=== PATIENT | female | born 1945 | race American Indian/Alaskan Native ===

== ENCOUNTER 2017-12-09 16:33 | Emergency (ER) | payer MEDICARE ==
--- NOTE | 2017-12-09 17:27 | Emergency Department Report ---
ED General Adult HPI - General Chief complaint: Weakness Stated complaint: FALL Time Seen by Provider: 12/09/17 17:11 Source: patient, EMS (verbal report received from EMS.ems notes not available at time of chart dictation), RN notes reviewed, old records reviewed Mode of arrival: Stretcher Limitations: Physical Limitation - History of Present Illness Initial comments: This is a 72-year-old female who is previously unknown to this provider. Past medical history includes hypertension, pacemaker, diabetes, congestive heart failure, chronic kidney disease, failure to thrive, functional quadriplegia. Patient was admitted to this hospital in September and had a prolonged course. Patient is brought to the hospital by EMS for generalized weakness. Apparently , the patient had been recently admitted to [facility] from November 18 to December 08. Her discharge diagnoses included urinary retention, altered mental status, anemia of chronic disease, chronic kidney disease, stage IV, morbid obesity and osteoarthritis. EMS verbally reported to this provider that the patient was at home with her family, and the patient was being transferred to a wheelchair, and fell onto her butt. She did not fall and hit her head or her neck. Family was unable to lift up the patient, and therefore called 911. EMS further reports that it took 3 people to get the patient lifted up. The patient denies headache, neck pain, chest pain, abdominal pain, shortness of breath. Her only complaint is bilateral plantar foot "burning" which has been present for months. He does not have exacerbating or relieving factors. -: Sudden Consistency: constant Improves with: none Worsens with: none Associated Symptoms: malaise, weakness, other (as per history of present illness ). denies: confusion, chest pain, cough, diaphoresis, fever/chills, headaches, nausea/vomiting, rash, seizure, shortness of breath, syncope - Related Data Previous Rx's Medication Instructions Recorded Last Taken Type Levofloxacin [Levaquin TAB] 250 mg PO Q48HR #4 dose 10/18/17 Unknown Rx predniSONE [Deltasone] 60 mg PO QDAY #30 day 10/18/17 Unknown Rx Acetaminophen [Acetaminophen TAB] 650 mg PO Q4H PRN #30 tablet 12/09/17 Unknown Rx Amlodipine Besylate [Norvasc] 10 mg PO QDAY #30 tablet 12/09/17 Unknown Rx AtorvaSTATin [Lipitor] 40 mg PO QHS #30 tablet 12/09/17 Unknown Rx Carvedilol 25 mg PO BID #60 tablet 12/09/17 Unknown Rx Furosemide [Lasix TAB] 40 mg PO BID #60 tablet 12/09/17 Unknown Rx Gabapentin [Neurontin] 100 mg PO TID #90 capsule 12/09/17 Unknown Rx Insulin Glargine,Hum.rec.anlog 20 units SQ QHS #30 vial 12/09/17 Unknown Rx [Lantus] Lispro Insulin [Humalog] 1 dose SUB-Q ACHS #100 units 12/09/17 Unknown Rx Loratadine [Claritin] 10 mg PO QDAY #30 tablet 12/09/17 Unknown Rx Omeprazole 40 mg PO QDAY #30 capsule. 12/09/17 Unknown Rx Sodium Bicarbonate 1,300 mg PO BID #30 day 12/09/17 Unknown Rx Zolpidem [Ambien] 5 mg PO QHS PRN #30 tablet 12/09/17 Unknown Rx Allergies Allergy/AdvReac Type Severity Reaction Status Date / Time codeine Allergy Itching Verified 10/10/17 17:56 Penicillins Allergy Itching Verified 10/10/17 17:56 ED Review of Systems ROS: Stated complaint: FALL Other details as noted in HPI Comment: All other systems reviewed and negative ED Past Medical Hx - Past Medical History Hx Hypertension: Yes Hx Congestive Heart Failure: Yes Hx Diabetes: Yes Hx Renal Disease: Yes Hx Arthritis: Yes Additional medical history: RENAL FAILURE - Surgical History Hx Cholecystectomy: Yes - Social History Smoking Status: Never Smoker Substance Use Type: None - Medications Home Medications: Home Medications Medication Instructions Recorded Confirmed Last Taken Type Levofloxacin [Levaquin TAB] 250 mg PO Q48HR #4 dose 10/18/17 12/09/17 Unknown Rx predniSONE [Deltasone] 60 mg PO QDAY #30 day 10/18/17 12/09/17 Unknown Rx Acetaminophen [Acetaminophen TAB] 650 mg PO Q4H PRN #30 tablet 12/09/17 Unknown Rx Amlodipine Besylate [Norvasc] 10 mg PO QDAY #30 tablet 12/09/17 Unknown Rx AtorvaSTATin [Lipitor] 40 mg PO QHS #30 tablet 12/09/17 Unknown Rx Carvedilol 25 mg PO BID #60 tablet 12/09/17 Unknown Rx Furosemide [Lasix TAB] 40 mg PO BID #60 tablet 12/09/17 Unknown Rx Gabapentin [Neurontin] 100 mg PO TID #90 capsule 12/09/17 Unknown Rx Insulin Glargine,Hum.rec.anlog 20 units SQ QHS #30 vial 12/09/17 Unknown Rx [Lantus] Lispro Insulin [Humalog] 1 dose SUB-Q ACHS #100 units 12/09/17 Unknown Rx Loratadine [Claritin] 10 mg PO QDAY #30 tablet 12/09/17 Unknown Rx Omeprazole 40 mg PO QDAY #30 capsule.dr 12/09/17 Unknown Rx Sodium Bicarbonate 1,300 mg PO BID #30 day 12/09/17 Unknown Rx Zolpidem [Ambien] 5 mg PO QHS PRN #30 tablet 12/09/17 Unknown Rx ED Physical Exam - General Limitations: Physical Limitation, Other (physical limitation, patient has been documented to be a functional quadriplegic and is unable to lift herself up.) General appearance: alert, in no apparent distress, obese - Head Head exam: Present: atraumatic, normocephalic - Eye Eye exam: Present: normal appearance, EOMI. Absent: nystagmus - ENT ENT exam: Present: normal exam, normal orophraynx, mucous membranes moist, normal external ear exam - Neck Neck exam: Present: normal inspection, full ROM - Respiratory Respiratory exam: Present: normal lung sounds bilaterally. Absent: respiratory distress - Cardiovascular Cardiovascular Exam: Present: regular rate, normal rhythm, normal heart sounds. Absent: bradycardia, tachycardia, irregular rhythm, systolic murmur, diastolic murmur, rubs, gallop - GI/Abdominal GI/Abdominal exam: Present: soft, normal bowel sounds. Absent: distended, tenderness, guarding, rebound, rigid, pulsatile mass - Rectal Rectal exam: Present: other (patient has stage III sacral ulcers noted. No redness, pus or streaking). Absent: normal inspection - External exam: Present: normal external exam, other (escorted by nurse Cosme ) - Extremities Exam Extremities exam: Present: normal inspection, pedal edema, other (there is no palpable cord. There is a negative Homans sign.). Absent: calf tenderness - Back Exam Back exam: Present: normal inspection, full ROM. Absent: tenderness, CVA tenderness (R), paraspinal tenderness, vertebral tenderness - Neurological Exam Neurological exam: Present: alert, CN II-XII intact, other (Extraocular movements intact. Tongue midline. No facial droop. Facial sensation intact to light touch in the V1, V2, V3 distribution bilaterally. 5 and 5 strength in bilateral upper extremities .3 out of 5 strength bilateral lower extremities sensation is intact to light touch in 4 extremities.) - Psychiatric Psychiatric exam: Present: normal affect, normal mood - Skin Skin exam: Present: warm, dry, intact, normal color. Absent: rash ED Course Vital Signs 12/09/17 12/09/17 12/09/17 16:55 17:00 17:02 Temperature 98 F Pulse Rate 64 Respiratory 16 Rate Blood Pressure 180/65 180/65 180/65 Blood Pressure [Right] O2 Sat by Pulse 97 96 Oximetry 12/09/17 12/09/17 12/09/17 17:10 17:20 17:30 Temperature Pulse Rate Respiratory Rate Blood Pressure 170/66 170/74 170/74 Blood Pressure [Right] O2 Sat by Pulse 98 99 98 Oximetry 12/09/17 12/09/17 12/09/17 17:40 17:50 18:00 Temperature Pulse Rate 92 H 89 Respiratory 20 17 Rate Blood Pressure 173/64 125/97 138/66 Blood Pressure [Right] O2 Sat by Pulse 100 98 94 Oximetry 12/09/17 12/09/17 12/09/17 18:10 18:20 18:30 Temperature Pulse Rate 89 86 82 Respiratory 18 12 16 Rate Blood Pressure 138/66 147/100 164/62 Blood Pressure [Right] O2 Sat by Pulse 99 99 97 Oximetry 12/09/17 12/09/17 12/09/17 18:36 18:40 18:42 Temperature Pulse Rate 80 86 Respiratory 15 15 15 Rate Blood Pressure 164/62 164/62 Blood Pressure [Right] O2 Sat by Pulse 98 99 98 Oximetry 12/09/17 12/09/17 12/09/17 18:50 19:00 19:10 Temperature Pulse Rate 86 88 85 Respiratory 16 17 18 Rate Blood Pressure 161/68 171/69 171/69 Blood Pressure [Right] O2 Sat by Pulse 98 98 97 Oximetry 12/09/17 12/09/17 12/09/17 19:20 19:30 19:38 Temperature 99.4 F Pulse Rate 81 75 Respiratory 16 15 Rate Blood Pressure 175/63 149/58 Blood Pressure [Right] O2 Sat by Pulse 98 97 Oximetry 12/09/17 12/09/17 12/09/17 19:40 19:50 20:00 Temperature Pulse Rate 76 77 75 Respiratory 16 15 15 Rate Blood Pressure 149/58 137/53 151/59 Blood Pressure [Right] O2 Sat by Pulse 98 99 97 Oximetry 12/09/17 12/10/17 12/10/17 22:42 04:00 06:19 Temperature 97.1 F L Pulse Rate 77 65 71 Respiratory 18 18 Rate Blood Pressure 169/66 Blood Pressure 145/73 135/47 [Right] O2 Sat by Pulse 99 97 Oximetry 12/10/17 12/10/17 12/10/17 08:00 11:57 12:34 Temperature 98.3 F 98.3 F Pulse Rate 66 64 63 Respiratory 18 18 Rate Blood Pressure 156/56 Blood Pressure 143/47 143/54 [Right] O2 Sat by Pulse 100 100 Oximetry 12/10/17 16:29 Temperature 98.3 F Pulse Rate 61 Respiratory 16 Rate Blood Pressure Blood Pressure 139/47 [Right] O2 Sat by Pulse 98 Oximetry - Reevaluation(s) Reevaluation #1: 12/09/17 17:39 Differential diagnosis, including but not limited to: Debility, functional paraplegia, chronic kidney disease, pneumonia, urinary tract infection Assessment and plan: 72-year-old female with acute on chronic debility. She has multiple chronic medical issues which at this time do not appear to be acutely decompensated. Patient has chronic renal insufficiency and congestive heart failure. She has no crackles, rales or JVD. She is saturating well on room air. She has no respiratory complaints. She has chronic edema in her bilateral lower extremities. We will check basic laboratory studies, urinalysis. Rectal temperature was 99.2 . Patient will also require evaluation by case management. Reevaluation #2: 12/09/17 18:40 Patient sleeping in no distress. Blood pressure in the 140s. Awaiting for nursing team to reconcile patient's medications. Urinalysis is pending. Reevaluation #3: 12/09/17 20:36 Patient continues to rest comfortably. Urinalysis is contaminated with epithelial cells and does not suggest an active infection. Patient may have chronic colonization. We will continue the patient's previous medications. Patient is currently waiting K spasm and evaluation for definitive placement. Reevaluation #4: 12/10/17 01:29 Vital signs remained stable. Patient in no distress. Care is transferred to the overnight physician, Dr. Collier, who will in turn transfer care over to the morning team to follow up with case management. ED Medical Decision Making - Lab Data Result diagrams: 12/09/17 17:47 12/09/17 17:47 Vital Signs 12/09/17 17:02 Temperature 98 F Pulse Rate 64 Respiratory 16 Rate Blood Pressure 180/65 O2 Sat by Pulse 96 Oximetry Labs 12/09/17 12/09/17 12/09/17 17:47 17:47 17:47 WBC 11.2 H RBC 4.00 Hgb 9.7 L Hct 31.7 MCV 79 MCH 24 L MCHC 31 RDW 18.5 H Plt Count 321 PT 14.0 INR 1.03 Sodium 134 L Potassium 5.1 H Chloride 97.0 L Carbon Dioxide 21 L Anion Gap 21 BUN 65 H Creatinine 3.6 H Estimated GFR 15 BUN/Creatinine Ratio 18 Glucose 199 H Calcium 8.1 L Phosphorus Magnesium Total Bilirubin 0.40 AST 17 ALT 21 Alkaline Phosphatase 123 Total Creatine Kinase Total Protein 6.1 L Albumin 2.4 L Albumin/Globulin Ratio 0.6 TSH 12/09/17 12/09/17 17:47 17:47 WBC RBC Hgb Hct MCV MCH MCHC RDW Plt Count PT INR Sodium Potassium Chloride Carbon Dioxide Anion Gap BUN Creatinine Estimated GFR BUN/Creatinine Ratio Glucose Calcium Phosphorus 4.40 Magnesium 1.90 Total Bilirubin AST ALT Alkaline Phosphatase Total Creatine Kinase 104 Total Protein Albumin Albumin/Globulin Ratio TSH 4.970 H - EKG Data -: EKG Interpreted by Me - EKG Data When compared to previous EKG there are: no significant change 12/09/17 18:31 Ventricular paced rhythm, left axis deviation, rate of 89, not having chest pain , abnormal EKG, not morphologically consistent with a STEMI. Unchanged from prior EKG. - Radiology Data Radiology results: report reviewed, image reviewed X-ray of the chest, interpreted by myself and radiology: No acute disease Critical care attestation.: If time is entered above; I have spent that time in minutes in the direct care of this critically ill patient, excluding procedure time. ED Disposition Clinical Impression: Debility, Chronic renal insufficiency Disposition: - TO HOME OR SELFCARE Is pt being admited?: No Does the pt Need Aspirin: No Condition: Good Additional Instructions: Continue current outpatient medications. Follow up with the primary care doctor or nephrology doctor within the next 2 weeks. Return to the ER right away with fevers, chills, lethargy, irritability, projectile vomiting, change in mental status, confusion, inability to tolerate liquid feeds. Prescriptions: AtorvaSTATin [Lipitor] 40 mg PO QHS #30 tablet Insulin Glargine,Hum.rec.anlog [Lantus] 20 units SQ QHS #30 vial Zolpidem [Ambien] 5 mg PO QHS PRN #30 tablet PRN Reason: Sleep Acetaminophen [Acetaminophen TAB] 650 mg PO Q4H PRN #30 tablet PRN Reason: Pain MILD(1-3)/Fever >100.5/[place] Amlodipine Besylate [Norvasc] 10 mg PO QDAY #30 tablet Carvedilol 25 mg PO BID #60 tablet Furosemide [Lasix TAB] 40 mg PO BID #60 tablet Gabapentin [Neurontin] 100 mg PO TID #90 capsule Lispro Insulin [Humalog] 1 dose SUB-Q ACHS #100 units Loratadine [Claritin] 10 mg PO QDAY #30 tablet Omeprazole 40 mg PO QDAY #30 capsule. Sodium Bicarbonate 1,300 mg PO BID #30 day Referrals: CADE MALHOTRA MD [Primary Care Provider] - 3-5 Days ATIF MINER MD [Staff Physician] - 3-5 Days
[2017-12-09 18:04] LABS: Hematocrit 31.7 % (30.3-42.9); Hemoglobin 9.7 gm/dl (10.1-14.3); Mean Corpuscular HGB Conc 31 % (30-34); Mean Corpuscular Hemoglobin 24 pg (28-32); Mean Corpuscular Volume 79 fl (79-97); Platelet Count 321 K/mm3 (140-440); Red Cell Distribution Width 18.5 % (13.2-15.2)
[2017-12-09 18:07] LABS: INR 1.03 (0.87-1.13)
[2017-12-09 18:14] LABS: Albumin 2.4 g/dL (3.9-5); Calcium 8.1 mg/dL (8.4-10.2)
--- NOTE | 2017-12-09 18:25 | XRay Report ---
FINAL REPORT PROCEDURE: XR CHEST 1V AP TECHNIQUE: Chest radiograph anteroposterior view. CPT 94262 HISTORY: Weakness COMPARISON: 10/10/2017 FINDINGS: Heart: Normal. Mediastinum/Vessels: Prominent central vessels. Lungs/Pleural space: No infiltrate, effusion, or pneumothorax. Bony thorax: No acute osseous abnormality. Life support devices: Left pacemaker. IMPRESSION: No radiographic evidence of acute cardiopulmonary abnormality.
[2017-12-09 19:24] LABS: Bacteria,Urine 1+ /HPF (Negative); Bilirubin,Urine NEG (Negative); Blood,Urine SM (Negative); Color,Urine Yellow (Yellow); Urobilinogen,Urine < 2.0 mg/dL (<2.0)
[2017-12-09] MEDS ORDERED: AMBIEN PO PRN (20:30)
[2017-12-09] MEDS ORDERED: TYLENOL PO PRN (20:30)
[2017-12-09] MEDS ORDERED: LANTUS SUB-Q SCH (22:00)
[2017-12-09] MEDS ORDERED: SODIUM BICARBONATE PO SCH (22:00)
[2017-12-09] MEDS ORDERED: LASIX PO SCH (22:00)
[2017-12-09] MEDS ORDERED: LASIX ONE (22:16)
[2017-12-09] MEDS: NORVASC PO SCH (22:42)
[2017-12-09] MEDS: COREG PO SCH (22:42)
[2017-12-09] MEDS: PROTONIX PO SCH (22:47)
[2017-12-10] MEDS ORDERED: NEURONTIN PO SCH (08:00)
[2017-12-10] MEDS: PROTONIX PO SCH (12:34)
[2017-12-10] MEDS: COREG PO SCH (12:34)
[2017-12-10] MEDS: NORVASC PO SCH (12:34)
[2017-12-10 16:30] VITALS: BP 139/47
== END 2017-12-10 16:30 | disposition home or self-care (01) ==
LOC: ED 16:33
DX: R53.81 Other malaise (principal); E11.22 Type 2 diabetes mellitus with diabetic chronic kidney disease; I12.9 Hypertensive chronic kidney disease with stage 1 through stage 4 chronic kidney disease, or unspecified chronic kidney disease; N18.9 Chronic kidney disease, unspecified
CPT/HCPCS: 36415; 51702; 71045; 80053; 81001; 82550; 82962; 83735; 84100; 84443; 85027; 85610; 87086; 93005; 93010; 96372; A9270-GY; J1815